=== PATIENT | male | born 1975 | race Caucasian/White ===

== ENCOUNTER 2018-07-27 17:20 | Inpatient (IN) | payer BC ==
[2018-07-27 21:53] VITALS: BMI 25.1
--- NOTE | 2018-07-27 23:33 | HP ---
COWS - Scale Resting Pulse: 1= [place] 81-100 Sweatin=Flushed/Facial Moisture Restless Observation: 3= Extraneous Movement Pupil Size: 0= Normal to Room Light Bone or Joint Aches: 4=Acute Joint/Muscle Pain Runny Nose/ Eye Tearin= Nasal Congestion GI Upset > 30mins: 2= Nausea/Diarrhea Tremor Observation: 0= None Yawning Observation: 1= 1-2x During Session Anxiety or Irritability: 4=Extreme Anxiety Goose Flesh Skin: 0=Smooth Skin COWS Score: 18 CIWA Score Nausea/Vomitin-Mild Nausea/No Vomiting Muscle Tremors: None Anxiety: 4-Mod. Anxious/Guarded Agitation: 4-Moderately Restless Paroxysmal Sweats: 3 Orientation: 0-Oriented Tacttile Disturbances: 3-Moderate Itch/Numb/Burn Auditory Disturbances: 0-None Visual Disturbances: 2-Mild Sensitivity Headache: 3-Moderate CIWA-Ar Total Score: 20 - Admission Criteria OASAS Guidelines: Admission for Medically Managed Detox: Requires at least one of the followin. CIWA greater than 12 2. Seizures within the past 24 hours 3. Delirium tremens within the past 24 hours 4. Hallucinations within the past 24 hours 5. Acute intervention needed for co occurring medical disorder 6. Acute intervention needed for co occurring psychiatric disorder 7. Severe withdrawal that cannot be handled at a lower level of care (continued vomiting, continued diarrhea, abnormal vital signs) requiring intravenous medication and/or fluids 8. Patient presents the following: CIWA greater than 12, Acute intervention needed for co-occurring med or psych disorder Admission Criteria Met: Admission criteria met Admission ROS [facility] Chief Complaint: C/O WORSENING WITHDRAWAL SX'S. SEEKING DETOX TXMENT Allergies/Adverse Reactions: Allergies Allergy/AdvReac Type Severity Reaction Status Date / Time No Known Allergies Allergy Verified 07/27/18 22:41 History of Present Illness: 43 Y.O. MALE WITH POLY SUBSTANCE ABUSE HERE FOR DETOX. CLIENT REPORTS HIS DRUG OF CHOICE HEROIN, ALCOHOL, COCAINE. HE ALSO REPORTS ABUSING RX XANAX AND OXYCODONE. RECENTLY FILLED ABOUT 2 WEEKS AGO FOR A 30 DAY SUPPLY BUT HAS SINCE EXHAUSTED THEM. UTOX + FOR FENTANYL AND COCAINE, LUPIS 0. . REPORTS LAST DETOX/ REHAB A YEAR AGO AT [facility]. REPORTS LONGEST CLEAN TIME 7 YEARS. RELPASING 2017. MOST RECENT CLEAN FOR 6 MONTHS RELAPSING AGAIN 2 MONTHS AGO. DENIES HX/O OVERDOSE, PAST/PRESENT SI/HI,AVH. HE REPORTS HX/O BLACKOUTS AND WITHDRAWAL SZ' S. LIVES ALONE-APT, UNEMPLOYED, DENIES LEGALS. Exam Limitations: No Limitations - Ebola screening Have you traveled outside of the country in the last 21 days: No Have you had contact with anyone from an Ebola affected area: No Have you been sick,other than usual withdrawal symptoms: No Do you have a fever: No - Review of Systems Constitutional: Chills, Loss of Appetite, Malaise, Night Sweats, Unintentional Wgt. Loss EENT: reports: Blurred Vision, Nose Congestion, Dental Problems (MISSING TEETH) Respiratory: reports: Shortness of Breath Cardiac: reports: No Symptoms Reported GI: reports: Nausea, Poor Appetite, Poor Fluid Intake, Abdominal cramping : reports: No Symptoms Reported Musculoskeletal: reports: Back Pain, Joint Pain, Neck Pain Integumentary: reports: Flushing, Sweating Neuro: reports: Headache, Seizure (WITHDRAWAL SZ) Endocrine: reports: No Symptoms Reported Psychiatric: reports: Orientated x3, Agitated, Anxious, Depressed Other Systems: Reviewed and Negative Patient History - Patient Medical History Hx Anemia: No Hx Asthma: No Hx Chronic Obstructive Pulmonary Disease (COPD): No Hx Cancer: No Hx Cardiac Disorders: No Hx Congestive Heart Failure: No Hx Hypertension: No Hx Hypercholesterolemia: No Hx Pacemaker: No HX Cerebrovascular Accident: No Hx Seizures: No Hx Dementia: No Hx Diabetes: No Hx Gastrointestinal Disorders: No Hx Liver Disease: No Hx Genitourinary Disorders: No Hx Sexually Transmitted Disorders: No Hx Renal Disease (ESRD): No Hx Thyroid Disease: No Hx Human Immunodeficiency Virus (HIV): No Hx Hepatitis C: No Hx Depression: No Hx Suicide Attempt: No Hx Bipolar Disorder: No Hx Schizophrenia: No Other Medical History: DENIES - Patient Surgical History Past Surgical History: No Hx Neurologic Surgery: No Hx Cataract Extraction: No Hx Cardiac Surgery: No Hx Lung Surgery: Yes Hx Breast Surgery: No Hx Breast Biopsy: No Hx Abdominal Surgery: No Hx Appendectomy: No Hx Cholecystectomy: No Hx Genitourinary Surgery: No Hx Section: No Hx Orthopedic Surgery: Yes Anesthesia Reaction: No - PPD History Previous Implant?: Yes Documented Results: Negative w/o proof Implanted On Prior R Admission?: No PPD to be Administered?: Yes - Smoking Cessation Smoking history: Current every day smoker Have you smoked in the past 12 months: Yes Aproximately how many cigarettes per day: 20 Cigars Per Day: 0 Hx Chewing Tobacco Use: No Initiated information on smoking cessation: Yes 'Breaking Loose' booklet given: 07/27/18 - Substance & Tx. History Hx Alcohol Use: Yes Hx Substance Use: Yes Substance Use Type: Alcohol, Cocaine, Heroin Hx Substance Use Treatment: Yes ([facility] EVANS) - Substances Abused Alcohol Route: Oral Frequency: Daily Amount used: beer- 2(40oz) Age of first use: 13 Date of Last Use: 07/27/18 Crack Route: Smoking Frequency: Daily Amount used: $100 worth Age of first use: 19 Date of Last Use: 07/27/18 HEROIN Route: Smoking Frequency: 1-2 times per week Amount used: $30 Age of first use: 43 Date of Last Use: 07/26/18 Family Disease History - Family Disease History Family History: Denies Admission Physical Exam [facility] - Vital Signs Vital Signs: Vital Signs - 24 hr 07/27/18 21:51 Temperature 97.1 F L Pulse Rate 63 Respiratory 18 Rate Blood Pressure 119/73 - Physical General Appearance: Yes: Appropriately Dressed, Moderate Distress, Sweating ( FLUSHED), Anxious HEENTM: Yes: EOMI, Normocephalic, Normal Voice, HAYDE, Pharynx Normal, Other ( MISSING TEETH) Respiratory: Yes: Chest Non-Tender, Lungs Clear, Normal Breath Sounds, No Respiratory Distress, No Accessory Muscle Use Neck: Yes: No masses,lesions,Nodules, Supple, Trachea in good position Breast: Yes: Breast Exam Deferred Cardiology: Yes: Irregularly Irregular Abdominal: Yes: Non Tender, Flat, Soft, Increased Bowel Sounds Genitourinary: Yes: Hesitency Back: Yes: Normal Inspection Musculoskeletal: Yes: full range of Motion, Gait Steady Extremities: Yes: Within Normal Limits, Normal Capillary Refill, Non-Tender Neurological: Yes: Fully Oriented, Alert, Motor Strength 5/5 Integumentary: Yes: Warm, Clammy Lymphatic: Yes: Within Normal Limits - Diagnostic (1) Opioid dependence with withdrawal Current Visit: Yes Status: Acute (2) Cocaine abuse, uncomplicated Current Visit: Yes Status: Acute (3) Sedative, hypnotic or anxiolytic dependence, uncomplicated Current Visit: Yes Status: Suspected (4) Prescription drug abuse Current Visit: Yes Status: Suspected (5) Nicotine dependence Current Visit: Yes Status: Chronic Qualifiers: Nicotine product type: cigarettes Substance use status: uncomplicated Qualified Code(s): F17.210 - Nicotine dependence, cigarettes, uncomplicated (6) Substance-induced sleep disorder Current Visit: Yes Status: Acute (7) Alcohol dependence with uncomplicated withdrawal Current Visit: Yes Status: Acute (8) At risk for dehydration due to poor fluid intake Current Visit: Yes Status: Acute Cleared for Admission [facility] - Detox or Rehab [facility] Level of Care: Medically Managed Detox Regimen/Protocol: Methadone/Librium Claeared for Rehab Admission: No S Breath Alcohol Content Breath Alcohol Content: 0 Urine Drug Screen - Results Drug Screen Negative: No Urine Drug Screen Results: JASON-Cocaine, FEN-Fentanyl Inpatient Rehab Admission - Rehab Decision to Admit Inpatient rehab admission?: No
[2018-07-27] MEDS ORDERED: MENTHOL/PHENOL 1 EACH UD MM PRN (23:39)
[2018-07-27] MEDS ORDERED: DICYCLOMINE HCL 10 MG CAPSULE PO PRN (23:39)
[2018-07-27] MEDS ORDERED: NICOTINE POLACRILEX 2 MG GUM BUC PRN (23:39)
[2018-07-27] MEDS ORDERED: ONDANSETRON *ODT* 4 MG TABLET SL PRN (23:39)
[2018-07-27] MEDS ORDERED: BISMUTH SUBSALICYLATE 524 MG/30 ML UD PO PRN (23:39)
[2018-07-27] MEDS ORDERED: MAGNESIUM HYDROX 2400MG/30ML ORAL SUSPENSION 30 ML CUP PO PRN (23:39)
[2018-07-27] MEDS ORDERED: P-EPHED 60MG/TRIPROLIDI 2.5MG TABLET PO PRN (23:39)
[2018-07-27] MEDS ORDERED: guaiFENesin 200 MG/10 ML 10 ML UNIT-DOSE CUPS PO PRN (23:39)
[2018-07-27] MEDS ORDERED: MAGNESIUM CITRATE 300 ML BOTTLE PO PRN (23:39)
[2018-07-27] MEDS ORDERED: MAG HYDROX/AL HYDROX/SIMETH 30 ML UNIT-DOSE CUP PO PRN (23:39)
[2018-07-28] MEDS ORDERED: METHADONE HCL 10 MG TABLET (FOR DETOX USE ONLY) PO ONE ×2 (00:08→10:00)
[2018-07-28] MEDS ORDERED: chlordiazePOXIDE HCL 25 MG CAPSULE PO ONE (00:08)
[2018-07-28] MEDS ORDERED: NALOXONE HCL 0.4 MG/ML VIAL IVPUSH PRN (00:08)
[2018-07-28] MEDS: chlordiazePOXIDE HCL 25 MG CAPSULE PO SCH ×3 (05:48→22:07)
[2018-07-28] MEDS: PRENATAL VITAMINS W/ FOLIC ACID TABLET (FP) PO SCH (10:40)
[2018-07-28] MEDS: NICOTINE 21 MG/24 HOURS TOPICAL PATCH TD SCH (10:41)
[2018-07-28 11:34] LABS: HEMATOCRIT 38.7 % (35.4-49); HEMOGLOBIN 13.1 GM/dL (11.7-16.9); MCH 31.3 pg (25.7-33.7); MCHC 33.9 g/dl (32.0-35.9); MEAN CELL VOLUME 92.4 fl (80-96); MEAN PLT VOLUME 8.7 fl (7.5-11.1); PLATELET COUNT 272 K/MM3 (134-434); RBC 4.19 M/mm3 (4.00-5.60); RDW 13.3 % (11.9-15.9); WHITE BLOOD COUNT 5.5 K/mm3 (4.0-10.0)
[2018-07-28 11:38] LABS: URINE APPEARANCE CLEAR; URINE BILIRUBIN NEGATIVE (<2.0 mg/dL); URINE COLOR YELLOW; URINE GLUCOSE (UA) NEGATIVE (NEGATIVE); URINE KETONE NEGATIVE (NEGATIVE); URINE LEUK ESTERASE NEGATIVE (NEGATIVE); URINE NITRITE NEGATIVE (NEGATIVE); URINE PROTEIN NEGATIVE (NEGATIVE)
--- NOTE | 2018-07-28 11:52 | PN ---
S CIWA - CIWA Score Nausea/Vomitin-No Nausea/No Vomiting Muscle Tremors: 3 Anxiety: 3 Agitation: 3 Paroxysmal Sweats: 3 Orientation: 0-Oriented Tacttile Disturbances: 0-None Auditory Disturbances: 0-None Visual Disturbances: 0-None Headache: 0-None Present CIWA-Ar Total Score: 12 [facility] Progress Note (SOAP) Subjective: sweats shakes interrupted sleep body aches Objective: 07/28/18 14:04 Vital Signs Temperature 97.2 F L 07/28/18 09:48 Pulse Rate 67 07/28/18 09:48 Respiratory Rate 16 07/28/18 09:48 Blood Pressure 99/58 L 07/28/18 09:48 O2 Sat by Pulse Oximetry (%) Laboratory Tests 07/28/18 07/28/18 07/28/18 07:30 07:30 07:30 WBC 5.5 RBC 4.19 Hgb 13.1 Hct 38.7 MCV 92.4 MCH 31.3 MCHC 33.9 RDW 13.3 Plt Count 272 MPV 8.7 Sodium 139 Potassium 4.1 Chloride 105 Carbon Dioxide 26 Anion Gap 8 BUN 13 Creatinine 1.0 Creat Clearance w eGFR 81.17 Random Glucose 101 Calcium 8.8 Total Bilirubin 0.3 AST 13 L ALT 17 Alkaline Phosphatase 67 Total Protein 6.2 L Albumin 3.4 Urine Color Urine Appearance Urine pH Ur Specific [place] Urine Protein Urine Glucose (UA) Urine Ketones Urine Blood Urine Nitrite Urine Bilirubin Urine Urobilinogen Ur Leukocyte Esterase RPR Titer HIV 1&2 Antibody Screen Negative HIV P24 Antigen Negative 07/28/18 07/28/18 07:30 08:00 WBC RBC Hgb Hct MCV MCH MCHC RDW Plt Count MPV Sodium Potassium Chloride Carbon Dioxide Anion Gap BUN Creatinine Creat Clearance w eGFR Random Glucose Calcium Total Bilirubin AST ALT Alkaline Phosphatase Total Protein Albumin Urine Color Yellow Urine Appearance Clear Urine pH 6.0 Ur Specific [place] 1.019 Urine Protein Negative Urine Glucose (UA) Negative Urine Ketones Negative Urine Blood Negative Urine Nitrite Negative Urine Bilirubin Negative Urine Urobilinogen 2.0 Ur Leukocyte Esterase Negative RPR Titer Nonreactive HIV 1&2 Antibody Screen HIV P24 Antigen aaox3 ambulating no acute distress Assessment: 07/28/18 14:04 withdrawal sx Plan: continue detox increase fluids
[2018-07-28 12:22] LABS: ALBUMIN 3.4 g/dl (3.4-5.0); ALK PHOS 67 U/L (45-117); ANION GAP 8 MMOL/L (8-16); BILIRUBIN,TOTAL 0.3 mg/dL (0.2-1); BLOOD UREA NITROGEN 13 mg/dL (7-18); CALCIUM 8.8 mg/dL (8.5-10.1); CHLORIDE 105 mmol/L (98-107); CO2 26 mmol/L (21-32); GLUCOSE,RANDOM 101 mg/dL (74-106); POTASSIUM 4.1 mmol/L (3.5-5.1); SGOT/AST 13 U/L (15-37); SGPT/ALT 17 U/L (13-61); SODIUM 139 mmol/L (136-145); TOT PROT 6.2 g/dl (6.4-8.2)
--- NOTE | 2018-07-28 17:47 | CONSULT ---
[facility] Psychiatric Consult - Data Date of interview: 07/28/18 Admission source: [facility] Identifying data: First admission to [facility] for this 43 y/o male from [place] descent self-referred for detoxification (alcohol, cocaine, opioid, xanax). Interviewed on . Patient is single, no children, domiciled, unemployed and supported by relatives. Substance Abuse History: Confirmed by the patient in this session. Details in current [facility] report as follows : Smoking history: Current every day smoker. Have you smoked in the past 12 months: Yes. Aproximately how many cigarettes per day: 20. Cigars Per Day: 0. Hx Chewing Tobacco Use: No. Initiated information on smoking cessation: Yes. 'Breaking Loose' booklet given: . - Substance & Tx. History. Hx Alcohol Use: Yes. Hx Substance Use: Yes. Substance Use Type: Alcohol, Cocaine, Heroin. Hx Substance Use Treatment: Yes ( FRANCA EVANS). - Substances Abused. Alcohol. Route: Oral. Frequency: Daily. Amount used: beer- 2(40oz). Age of first use: 13. Date of Last Use: . Crack. Route: Smoking. Frequency: Daily. Amount used: $100 worth. Age of first use: 19. Date of Last Use: 07/27/18. HEROIN. Route: Smoking. Frequency: 1-2 times per week. Amount used: $30. Age of first use: 43. Date of Last Use: 07/26/18 Medical History: Chronic lumbar pain and arthritis. Psychiatric History: No reported history of psychiatric hospitalizations. Patient reports that he has been diagnosed with ADHD. Used to be on gabapentin ( pain) + seroquel (insomnia). Last took these medications in January 2018. No psychiatric OPD care for several months.Mr Atwood denies history of suicide attempts. Physical/Sexual Abuse/Trauma History: Patient denies. Additional Comment: Urine Drug Screen Results: JASON-Cocaine, FEN-Fentanyl. Noted. Mental Status Exam - Mental Status Exam Alert and Oriented to: Time, Place, Person Patient Appearance: Well Groomed Mood: Nervous, Withdrawn, Anxious Affect: Mood Congruent, Constricted Patient Behavior: Fatigued, Cooperative Speech Pattern: Clear, Appropriate Voice Loudness: Normal Thought Process: Intact, Goal Oriented Thought Disorder: Not Present Hallucinations: Denies Suicidal Ideation: Denies Homicidal Ideation: Denies Insight/Judgement: Poor Sleep: Poorly, Difficulty falling asleep Appetite: Good (noted empty foodtray at bedside) Muscle strength/Tone: Normal Gait/Station: Other (not observed ; patient did not get OOB for entire interview ) Psychiatric Findings - Problem List ([place] 1, 2,3) (1) Opioid dependence with withdrawal Current Visit: Yes Status: Acute (2) Alcohol dependence with uncomplicated withdrawal Current Visit: Yes Status: Acute (3) Cocaine abuse, uncomplicated Current Visit: Yes Status: Chronic (4) Nicotine dependence Current Visit: Yes Status: Chronic Qualifiers: Nicotine product type: cigarettes Substance use status: uncomplicated Qualified Code(s): F17.210 - Nicotine dependence, cigarettes, uncomplicated (5) Substance induced mood disorder Current Visit: Yes Status: Chronic - Initial Treatment Plan Initial Treatment Plan: Psychoeducation. Sleep hygiene. Detoxification. Support. Relapse prevention : discussed with the patient. Motivational sessions. Observation.
[2018-07-28] MEDS: THIAMINE HCL 100 MG TABLET (FP) PO SCH (22:07)
[2018-07-28] MEDS: MELATONIN 5 MG TABLETS PO PRN (22:07)
[2018-07-28] MEDS: ACETAMINOPHEN 325 MG TABLET (FP) PO PRN (22:12)
[2018-07-29] MEDS: chlordiazePOXIDE 5 MG CAPSULE PO SCH ×3 (05:49→22:23)
[2018-07-29] MEDS ORDERED: METHADONE HCL 5 MG TABLET (FOR DETOX USE ONLY) PO ONE (10:00)
[2018-07-29] MEDS: NICOTINE 21 MG/24 HOURS TOPICAL PATCH TD SCH (11:02)
[2018-07-29] MEDS: PRENATAL VITAMINS W/ FOLIC ACID TABLET (FP) PO SCH (11:02)
[2018-07-29] MEDS: hydrOXYzine PAMOATE 25 MG CAPSULE (FP) PO PRN ×2 (11:03→18:34)
[2018-07-29] MEDS: chlordiazePOXIDE HCL 10 MG CAPSULE PO PRN ×2 (11:04→19:37)
[2018-07-29] MEDS: METHOCARBAMOL 500 MG TABLET PO PRN (11:04)
[2018-07-29] MEDS: IBUPROFEN 400 MG TABLET (FP) PO PRN ×2 (13:18→22:25)
--- NOTE | 2018-07-29 15:17 | PN ---
S CIWA - CIWA Score Nausea/Vomitin-No Nausea/No Vomiting Muscle Tremors: 3 Anxiety: 2 Agitation: 0-Normal Activity Paroxysmal Sweats: 3 Orientation: 2-Disoriented Date<2 days Tacttile Disturbances: 0-None Auditory Disturbances: 0-None Visual Disturbances: 1-Very Mild Sensitivity Headache: 3-Moderate CIWA-Ar Total Score: 14 [facility] COWS - Scale Resting Pulse: 1= [place] 81-100 Sweatin= Chills/Flushing Restless Observation: 1= Difficult to Sit Still Pupil Size: 0= Normal to Room Light Bone or Joint Aches: 2= Severe Diffuse Aches Runny Nose/ Eye Tearin= None GI Upset > 30mins: 0= None Tremor Observation of Outstretched Hands: 2= Slight Tremor Visible Yawning Observation: 1= 1-2x During Session Anxiety or Irritability: 2=Irritable/Anxious Goose Flesh Skin: 0=Smooth Skin COWS Score: 10 [facility] Progress Note (SOAP) Subjective: Sweating, Tremors, H/A, Body Aches. Objective: PATIENT A & O X 2 (UNCERTAIN ABOUT CURRENT DAY / DATE). PATIENT OBSERVED AMBULATING ON UNIT. IN NO ACUTE DISTRESS. 07/29/18 15:16 Vital Signs Temperature 97.5 F L 07/29/18 14:11 Pulse Rate 91 H 07/29/18 14:11 Respiratory Rate 18 07/29/18 14:11 Blood Pressure 123/78 07/29/18 14:11 O2 Sat by Pulse Oximetry (%) Laboratory Tests 07/28/18 07/28/18 07/28/18 07:30 07:30 07:30 WBC 5.5 RBC 4.19 Hgb 13.1 Hct 38.7 MCV 92.4 MCH 31.3 MCHC 33.9 RDW 13.3 Plt Count 272 MPV 8.7 Sodium 139 Potassium 4.1 Chloride 105 Carbon Dioxide 26 Anion Gap 8 BUN 13 Creatinine 1.0 Creat Clearance w eGFR 81.17 Random Glucose 101 Calcium 8.8 Total Bilirubin 0.3 AST 13 L ALT 17 Alkaline Phosphatase 67 Total Protein 6.2 L Albumin 3.4 Urine Color Urine Appearance Urine pH Ur Specific [place] Urine Protein Urine Glucose (UA) Urine Ketones Urine Blood Urine Nitrite Urine Bilirubin Urine Urobilinogen Ur Leukocyte Esterase RPR Titer HIV 1&2 Antibody Screen Negative HIV P24 Antigen Negative 07/28/18 07/28/18 07:30 08:00 WBC RBC Hgb Hct MCV MCH MCHC RDW Plt Count MPV Sodium Potassium Chloride Carbon Dioxide Anion Gap BUN Creatinine Creat Clearance w eGFR Random Glucose Calcium Total Bilirubin AST ALT Alkaline Phosphatase Total Protein Albumin Urine Color Yellow Urine Appearance Clear Urine pH 6.0 Ur Specific [place] 1.019 Urine Protein Negative Urine Glucose (UA) Negative Urine Ketones Negative Urine Blood Negative Urine Nitrite Negative Urine Bilirubin Negative Urine Urobilinogen 2.0 Ur Leukocyte Esterase Negative RPR Titer Nonreactive HIV 1&2 Antibody Screen HIV P24 Antigen LABS NOTED. HCV RESULT PENDING. 07/29/18 15:17 Assessment: 07/29/18 15:16 WITHDRAWAL SYMPTOMS. Plan: CONTINUE DETOX.
[2018-07-29] MEDS: ACETAMINOPHEN 325 MG TABLET (FP) PO PRN (18:34)
[2018-07-29] MEDS: THIAMINE HCL 100 MG TABLET (FP) PO SCH (22:23)
[2018-07-30] MEDS ORDERED: chlordiazePOXIDE HCL 10 MG CAPSULE PO PRN (05:00)
[2018-07-30] MEDS: chlordiazePOXIDE HCL 10 MG CAPSULE PO SCH ×3 (05:14→22:05)
[2018-07-30] MEDS ORDERED: METHADONE HCL 10 MG TABLET (FOR DETOX USE ONLY) PO ONE (10:00)
[2018-07-30] MEDS: NICOTINE 21 MG/24 HOURS TOPICAL PATCH TD SCH (10:40)
[2018-07-30] MEDS: PRENATAL VITAMINS W/ FOLIC ACID TABLET (FP) PO SCH (10:40)
[2018-07-30] MEDS: cloNIDine HCL 0.1 MG TABLET PO PRN ×2 (10:40→18:28)
--- NOTE | 2018-07-30 14:08 | PN ---
S Progress Note (SOAP) Subjective: alert,irritable,anxious,interrupted sleep,tremor,pain in the body Objective: 07/30/18 14:04 Vital Signs Temperature 96.8 F L 07/30/18 13:49 Pulse Rate 79 07/30/18 13:49 Respiratory Rate 16 07/30/18 13:49 Blood Pressure 110/60 07/30/18 13:49 O2 Sat by Pulse Oximetry (%) Assessment: 07/30/18 14:04 withdrawal symptom,hepatitis c test pending Plan: continue detox,discharge in am
[2018-07-30] MEDS: hydrOXYzine PAMOATE 25 MG CAPSULE (FP) PO PRN (18:29)
[2018-07-30] MEDS: IBUPROFEN 400 MG TABLET (FP) PO PRN (18:29)
[2018-07-30] MEDS: METHOCARBAMOL 500 MG TABLET PO PRN (18:29)
[2018-07-30] MEDS: THIAMINE HCL 100 MG TABLET (FP) PO SCH (22:04)
[2018-07-30] MEDS: MELATONIN 5 MG TABLETS PO PRN (22:04)
[2018-07-31] MEDS: chlordiazePOXIDE HCL 10 MG CAPSULE PO SCH (05:44)
[2018-07-31] MEDS ORDERED: METHADONE HCL 5 MG TABLET (FOR DETOX USE ONLY) PO ONE (06:00)
[2018-07-31 06:46] VITALS: BP 100/57; PULSE 62; TEMP 96.4
[2018-07-31] MEDS: PRENATAL VITAMINS W/ FOLIC ACID TABLET (FP) PO SCH (09:08)
[2018-07-31] MEDS: NICOTINE 21 MG/24 HOURS TOPICAL PATCH TD SCH (09:08)
--- NOTE | 2018-07-31 09:17 | PN ---
[facility] Progress Note (SOAP) Subjective: Concern about Hep C result Objective: 07/31/18 09:16 A & O x 3 Not in distress Vital Signs Temperature 96.4 F L 07/31/18 06:00 Pulse Rate 62 07/31/18 06:00 Respiratory Rate 18 07/31/18 06:00 Blood Pressure 100/57 L 07/31/18 06:00 O2 Sat by Pulse Oximetry (%) Assessment: 07/31/18 09:16 Detox completed Plan: For d/c
--- NOTE | 2018-07-31 09:24 | DS ---
[facility] Detox Discharge Summary Admission Date: 07/27/18 Discharge Date: 07/31/18 - History Additional Comments: Pt being discharged due to completion of detox. Pt states he will do aftercare as out patient @ [facility] to [facility], Alexandra Rizvi He will also f/u with his PMD Dr Bond at a clinic in [facility] Narcan rx given, pt understands to pick it up at sunrise and understands the use of it. Pt's lab results were also printed and given to him per his request s/p result of his hep c test Pt was A & O x 3 and in no distress - Physical Exam Results Vital Signs: Vital Signs Temperature 96.4 F L 07/31/18 06:00 Pulse Rate 62 07/31/18 06:00 Respiratory Rate 18 07/31/18 06:00 Blood Pressure 100/57 L 07/31/18 06:00 O2 Sat by Pulse Oximetry (%) - Treatment Hospital Course: Detox Protocol Followed, Detoxed Safely, Responded well, Discharged Condition Good - Medication Discharge Medications: Ambulatory Orders Alprazolam [Xanax] 2 mg PO TID 07/27/18 Oxycodone HCl [Oxycodone HCl ER] 10 mg PO BID 07/27/18 Naloxone HCl [Narcan] 4 mg NS PRN #1 spray 07/31/18 - AMA Did Patient Leave Against Medical Advice: No
== END 2018-07-31 09:15 | disposition home or self-care (01) | DRG 773 ==
LOC: YASAS 17:20 → Y6N 23:18
PROVIDERS: ADMIT Surgery; ATTEND Surgery
PROC: HZ2ZZZZ Detoxification Services for Substance Abuse Treatment (ICD-10-PCS; principal; 2018-07-27)
DX: F11.23 Opioid dependence with withdrawal (principal); F10.230 Alcohol dependence with withdrawal, uncomplicated; F13.230 Sedative, hypnotic or anxiolytic dependence with withdrawal, uncomplicated; F14.10 Cocaine abuse, uncomplicated; F17.210 Nicotine dependence, cigarettes, uncomplicated; F19.24 Other psychoactive substance dependence with psychoactive substance-induced mood disorder; F19.282 Other psychoactive substance dependence with psychoactive substance-induced sleep disorder; Z91.89 Other specified personal risk factors, not elsewhere classified
CPT/HCPCS: 36415; 80053; 81003; 85027; 86593; 87389; 87522; J0735